=== PATIENT | male | born 1955 | race Caucasian/White ===

== ENCOUNTER 2019-09-17 10:52 | Inpatient (IN) | payer BC, OTHER ==
[~2019-09-17] VITALS: Ht 175.3 cm; Wt 80.7 kg
--- NOTE | 2019-09-17 10:53 | NUR ---
ED Nurse Note: Pt was BIBA from home d/t multiple drug OD. Pt is AOx3, noted to be tachycardiac with HR of 121bpm and appears to be hypotensive with 88/64 BP. Pt is calm and cooperative, skin is warm to touch, able to follow commands and verbalize his needs. Per triage, pt is HIV+. Pt arrived with established and patent IV site on LT AC with 20G by woolen mill utility worker. Placed on bed and gown; hooked to compliance monitor. Assured safety; will continue to monitor.
[2019-09-17 10:56] VITALS: BP 97/68
--- NOTE | 2019-09-17 10:59 | Emergency Room Report ---
History of Present Illness General Chief Complaint: Overdose Source: Patient, EMS Present Illness HPI Patient is a 63-year-old gentleman past medical history of HIV and hypertension who presents to the ER for weakness. Patient states that for the past 3 days he has been doing methamphetamines and GHB and has been unable to sleep. He states that he called EMS because he felt weak and unsteady. He denies any head trauma or headache. He denies any chest pain. Patient states that he feels a little bit short of breath. He denies any cough. He denies any abdominal pain, nausea or vomiting. He denies any rashes. He denies any recent travel or known sick contacts. COVID-19 risk:Travel to affect: No Has patient experienced tracey: No Allergies: Coded Allergies: SULFAMETHOXAZOLE (Unverified Allergy, Unknown, 09/17/19) TRIMETHOPRIM (Unverified Allergy, Unknown, 09/17/19) Patient History Past Medical History: HIV Social History: Reports: drug use Reviewed Nursing Documentation: PSxH: Agreed Review of Systems All Other Systems: negative except mentioned in HPI Physical Exam Vital Signs Date Time Temp Pulse Resp B/P (MAP) Pulse Ox O2 Delivery O2 Flow Rate FiO2 09/17/19 10:43 98.2 126 20 105/62 (76) 98 Room Air Sp02 EP Interpretation: reviewed, normal General Appearance: no apparent distress, alert, GCS 15, non-toxic Head: normocephalic, atraumatic Eyes: bilateral eye normal inspection, bilateral eye PERRL ENT: hearing grossly normal, no angioedema, normal voice, other - dry oral mucosa Neck: full range of motion, supple/symm/no masses Respiratory: chest non-tender, lungs clear, normal breath sounds, speaking full sentences Cardiovascular #1: tachycardia Gastrointestinal: normal bowel sounds, non tender, soft, non-distended, no guarding, no rebound Rectal: deferred Musculoskeletal: back normal, normal range of motion, calf tenderness, gait/ station normal, non-tender Neurologic: alert, motor strength/tone normal, oriented x3, sensory intact, responsive, speech normal Psychiatric: anxious Skin: no rash Lymphatic: no adenopathy Procedures Critical Care Time Critical Care Time Total critical care time: Approximately 35 minutes. Due to a high probability of clinically significant, life threatening deterioration, the patient required my highest level of preparedness to intervene emergently and I personally spent this critical care time directly and personally managing the patient. This critical care time included obtaining a history; examining the patient; pulse oximetry; ordering and review of studies; arranging urgent treatment with development of a management plan; evaluation of patient's response to treatment ; frequent reassessment; and, discussions with other providers.This critical care time was performed to assess and manage the high probability of imminent, life-threatening deterioration that could result in multi-organ failure. It was exclusive of separately billable procedures and treating other patients and teaching time. Please see MDM section and the rest of the note for further information on patient assessment and treatment. Medical Decision Making Diagnostic Impression: Primary Impression: Drug abuse Additional Impressions: Acute renal failure Dehydration Tachycardia Hypotension Rhabdomyolysis ER Course Patient initially hypotensive upon arrival. Patient given IV fluids. Blood pressure has been improving and heart rate has been decreasing. Patient's labs demonstrate acute renal insufficiency, dehydration and rhabdomyolysis. Patient given an amp of sodium bicarb and started on sodium bicarb drip. Patient complained of shortness of breath with tachycardia and hypotension. D-dimer elevated. CTA cannot be ordered to rule out PE due to patient's renal insufficiency. VQ scan has been ordered and is pending to rule out pulmonary embolism. Admitting doctor aware and will follow-up on those findings. EKG Diagnostic Results EKG Time: 10:55 EP Interpretation: MD Zaida Rate: tachycardiac ST Segments: no acute changes Other Impression sinus tachycardia ASA given to the pt in ED: No Rhythm Strip Diag. Results Rhythm Strip Time: 10:58 EP Interpretation: yes - MD Matt Rate: 117 Rhythm: no PVC's, no ectopy, other - sinus tachycardia Last Vital Signs Date Time Temp Pulse Resp B/P (MAP) Pulse Ox O2 Delivery O2 Flow Rate FiO2 09/17/19 10:43 98.2 126 20 105/62 (76) 98 Room Air Disposition: ADMITTED INPATIENT Condition: Critical Physician Consult: Dr. Scott in critical improved condition to Telemetry Isatu Cerda M.D. Sep 17, 2019 10:59
--- NOTE | 2019-09-17 11:05 | NUR ---
ED Nurse Note: xray @ bedside
[2019-09-17 11:21] LABS: BASOPHILS % (AUTO) 0.7 % (0.0-2.0); HEMOGLOBIN 12.4 G/DL (14.2-18.0); LYMPHOCYTES % (AUTO) 15.4 % (20.0-45.0); MEAN CORPUSCULAR VOLUME 91 FL (80-99); MONOCYTES % (AUTO) 11.3 % (1.0-10.0); NEUTROPHILS % (AUTO) 72.6 % (45.0-75.0); PLATELET COUNT 340 K/UL (150-450); RED BLOOD COUNT 3.96 M/UL (4.70-6.10); RED CELL DISTRIBUTION WIDTH 13.7 % (11.6-14.8); WHITE BLOOD COUNT 10.7 K/UL (4.8-10.8)
[2019-09-17 11:41] LABS: ANION GAP 18 mmol/L (5-15); BLOOD UREA NITROGEN 51 mg/dL (7-18); CALCIUM 9.2 MG/DL (8.5-10.1); CARBON DIOXIDE 18 MMOL/L (21-32); CHLORIDE 103 MMOL/L (98-107); CREATININE 3.5 MG/DL (0.55-1.30); POTASSIUM 5.3 MMOL/L (3.5-5.1); SODIUM 139 MMOL/L (136-145)
[2019-09-17 11:45] LABS: ALANINE AMINOTRANSFERASE 50 U/L (12-78); ALBUMIN 4.3 G/DL (3.4-5.0); ALKALINE PHOSPHATASE 112 U/L (46-116); ASPARTATE AMINO TRANSFERASE 72 U/L (15-37); CREATINE KINASE 939 U/L (26-308)
[2019-09-17] MEDS ORDERED: D5W w/Sodium Bicarb 3 amps 1000 ml IV SCH ×2 (12:00)
[2019-09-17] MEDS ORDERED: SODIUM BICARBONATE IV ONE ×2 (12:00)
[2019-09-17] MEDS ORDERED: Sodium Bicarbonate 50ml Carp IV ONE ×2 (12:00)
[2019-09-17] MEDS ORDERED: SODIUM CHLORIDE IV ONE ×2 (12:00)
--- NOTE | 2019-09-17 12:15 | NUR ---
ED Nurse Note: Patient tolerating medications well. No s/s of acute distress. BP currently 119/72
[2019-09-17] MEDS ORDERED: Omnipaque 350 100ml vial INJ PRN (12:30)
--- NOTE | 2019-09-17 12:34 | Diagnostic Imaging Report ---
Indication: Abnormal chest sounds Technique: One view of the chest Comparison: none Findings: Lungs and pleural spaces are clear. Heart size is normal. Impression: No acute process
[2019-09-17 12:40] VITALS: BP 119/72
--- NOTE | 2019-09-17 14:00 | NUR ---
Attempted to bring pt to Nuclear Medicine department for Stat V/Q Scan. Pt is currently refusing due to lack of health insurance and inability to pay [place]. ROBIN pearson.
--- NOTE | 2019-09-17 14:00 | NUR ---
ED Nurse Note: Patient refusing further services d/t not having insurance. Patient was unaware that his [employer] insurance is inacative. Addendum: 09/17/19 at [address] Zaida pearson.
[2019-09-17 14:15] VITALS: BP 117/76
--- NOTE | 2019-09-17 14:55 | NUR ---
ED Nurse Note: Patient agreed to have testing now, patient taken to have VQ scan done
--- NOTE | 2019-09-17 15:30 | NUR ---
ED Nurse Note: Patient returned from VQ scan
--- NOTE | 2019-09-17 15:50 | NUR ---
ED Nurse Note: Report given to Tano KELLY
--- NOTE | 2019-09-17 15:57 | Diagnostic Imaging Report ---
Indications: Shortness of breath Technique: IV administration 5 mCi 99m technetium macroaggregated albumin. Images obtained over the lungs in multiple projections. Previous, patient inhaled 40 mCi aerosolized 99M technetium DTPA. Images obtained over the lungs in multiple projections Comparison: Reference made to chest radiograph of earlier the same day Findings: There is slight heterogeneity to tracer distribution, but no segmental or subsegmental perfusion defects and no evidence of aerosol/perfusion mismatch. Impression: Findings deemed low probability for pulmonary embolus
[2019-09-17 17:00] VITALS: BP 132/78
--- NOTE | 2019-09-17 17:00 | NUR ---
NURSE NOTES: Patient was admitted from ED via gurney. Ambulatory. RA. AAO x 4. No c/o of pain/distress at this moment. IV on LAC 20g noted, with SL. alarm security or surveillance monitor on. Orientation on new unit given. Belongings were accounted. Side rails x 2. Bed in the lowest and locked. Call light within reach. Will continue to monitor
[2019-09-17] MEDS ORDERED: HYDROcodone/Acetamin 5/325 tab ORAL PRN (17:30)
[2019-09-17] MEDS ORDERED: Lactulose 20gm/30ml UDC ORAL PRN (17:30)
[2019-09-17] MEDS ORDERED: MULTIVITAMINS1 EAC2 ORAL (17:44)
[2019-09-17] MEDS ORDERED: FOLIC ACID0.8 M1 PO (17:44)
[2019-09-17] MEDS ORDERED: VALACYCLOVIR500 MG ORAL (17:44)
[2019-09-17] MEDS ORDERED: ASPIRIN-LOW81 MG ORAL (17:44)
[2019-09-17] MEDS ORDERED: DIAZEPAM5 MG ORAL (17:44)
[2019-09-17] MEDS ORDERED: FISH OIL CAP1000 MG ORAL (17:44)
[2019-09-17] MEDS ORDERED: MELATONIN5 M5 ORAL (17:44)
[2019-09-17] MEDS ORDERED: TYLENOL EXTRA500 MG ORAL (17:44)
[2019-09-17] MEDS ORDERED: DEPO-TESTOSTER100 MG IM (17:44)
[2019-09-17] MEDS ORDERED: ZALEPLON10 MG ORAL (17:44)
[2019-09-17] MEDS ORDERED: COQ-10100 M1 PO (17:44)
[2019-09-17] MEDS ORDERED: GABAPENTIN600 MG ORAL (17:44)
[2019-09-17] MEDS ORDERED: ATORVASTATIN CA20 MG ORAL (17:44)
[2019-09-17] MEDS ORDERED: LISINOPRIL20 MG ORAL (17:44)
[2019-09-17] MEDS ORDERED: TRIUMEQ 600-501 EACH PO (17:44)
[2019-09-17] MEDS ORDERED: VITAMIN C500 M1 ORAL (17:44)
[2019-09-17] MEDS ORDERED: ALLOPURINOL100 M1 ORAL (17:44)
[2019-09-17] MEDS ORDERED: Sodium Bicarbonate 50 ML in D5 1/2NS 1,000 ML IV SCH ×2 (18:30→19:00)
[2019-09-17] MEDS ORDERED: Acetaminophen 500mg (ES) tab ORAL PRN (18:30)
--- NOTE | 2019-09-17 19:11 | NUR ---
HAND-OFF: Report given to ROBIN Justice.
--- NOTE | 2019-09-17 19:15 | NUR ---
NURSE NOTES: Received report from ROBIN Freedman. Patient is awake, lying in semi barber's; resting comfortably. A/Ox4. Denies pain at this time. No signs of acute distress noted. Checked IV site and flushed. No erythema, bleeding or infiltration noted. Bed at lowest position, brakes on, siderails x2. Call light within reach. Will continue to monitor.
--- NOTE | 2019-09-17 19:20 | NUR ---
NURSE NOTES: US Renal done c/o tech.
[2019-09-17 20:00] VITALS: BP 114/76
[2019-09-17] MEDS: Heparin 5000 units/ml inj SUBQ SCH (20:27)
[2019-09-17] MEDS: Sodium Bicarbonate 50 ML in D5 1/2NS 1,000 ML IV SCH (20:30)
[2019-09-17] MEDS ORDERED: Zolpidem 5mg tab ORAL PRN (21:00)
[2019-09-18] VITALS: BP 134/62
--- NOTE | 2019-09-18 02:30 | History and Physical Report ---
DATE OF ADMISSION: 09/17/2019 REASON FOR ADMISSION: Electrolyte abnormalities following drug overdose. HISTORY OF PRESENT ILLNESS: This is a 63-year-old white male with history of HIV and hypertension. He presented to the emergency room with weakness and some shortness of breath. He has been "partying" for the past few days and doing methamphetamines and GHB. He has been unable to sleep. He has been eating poorly and has not been drinking much fluids. He denies any falls, head trauma, or loss of consciousness that he is aware of. He noted some shortness of breath and came to the emergency room. He has not had any recent ill contacts or travel. ALLERGIES: Sulfa and trimethoprim. PAST MEDICAL HISTORY: HIV, hypertension, and hyperlipidemia. SOCIAL HISTORY: Notable for drug use. Denies smoking or alcohol abuse. MEDICATIONS: Prior to admission, reviewed and reconciled. REVIEW OF SYSTEMS: No fevers or chills. No cough. No history of abnormal blood clotting. No history of myocardial infarction. He does have hypertension. He is on HIV therapy and undetectable viral load. He denies diabetes or thyroid impairment. He is on anti-lipid drugs. There is no history of seizure or stroke. He does have insomnia. He denies change in bowel habits history of prostate cancer. PHYSICAL EXAMINATION: VITAL SIGNS: Blood pressure 105/62, heart rate 126, respiratory rate 20, and afebrile. HEENT: Dry mucous membranes. NECK: Supple. Jugular venous pressure normal. LUNGS: Clear. CARDIAC: Regular rhythm. Rapid rate. Normal S1 and S2 with no murmur. ABDOMEN: Soft and nontender. EXTREMITIES: Good pulses. No edema. NEUROLOGIC: Nonfocal. LABORATORY AND DIAGNOSTIC DATA: EKG with sinus tachycardia and no acute abnormalities. White count 10.7, hemoglobin 12.4, and platelet count 340,000. Lactic acid 0.8. Troponin 0. CK 939. BUN 51, creatinine 3.5, sodium 139, potassium 5.3, and bicarb 18. D-dimer is slightly elevated at 1.1. VQ scan was low probability for pulmonary embolus. Chest x-ray revealed no acute process. IMPRESSION: 1. Substance abuse. 2. Methamphetamine intoxication. 3. Rhabdomyolysis. 4. Acute renal failure. 5. Dehydration. 6. Hypovolemia. 7. HIV positive. 8. History of hypertension. PLAN: 1. Cardiac monitoring. 2. Withdrawal precautions. 3. IV fluid hydration with hypotonic IV. 4. Hold angiotensin-converting enzyme inhibitor. 5. DVT prophylaxis. 6. Monitor volume status and cardiorenal function. 7. Hold statin therapy for now as well. 8. Await urinalysis. Des Iniguez M.D. DR: ZONIA JOB#: [id number] CC:
[2019-09-18 04:00] VITALS: BP 118/61
--- NOTE | 2019-09-18 04:24 | NUR ---
NURSE NOTES: Resting throughout the night. No significant change of condition noted. Will continue to monitor.
[2019-09-18] MEDS: Sodium Bicarbonate 50 ML in D5 1/2NS 1,000 ML IV SCH ×2 (05:00→17:53)
[2019-09-18 05:46] LABS: APPEARANCE,URINE CLEAR; BILIRUBIN, URINE NEGATIVE (NEGATIVE); COLOR,URINE PALE YELLOW; GLUCOSE, URINE (UA) NEGATIVE (NEGATIVE); KETONES,URINE NEGATIVE (NEGATIVE); LEUKOCYTE ESTERASE ,URINE NEGATIVE (NEGATIVE); NITRITE,URINE NEGATIVE (NEGATIVE); PH,URINE 6 (4.5-8.0); PROTEIN,URINE NEGATIVE (NEGATIVE); UROBILINOGEN,URINE NORMAL MG/DL (0.0-1.0)
--- NOTE | 2019-09-18 07:00 | NUR ---
HAND-OFF: Report given to ROBIN Eddy. Plan of care endorsed.
--- NOTE | 2019-09-18 07:45 | NUR ---
NURSE NOTES: Received report from Amisha Pandya Patient is in stable condition, no signs and symptoms of respiratory distress, denies any pain nor discomfort at this time. Patient is resting comfortably on bed. Bed is in low and locked position. Call light and bedside table placed within reach. Patient has left AC G-20 D5 1/2 NS+Bicarb 100cc/hr. Patient is ambulatory, steady gait. Advised to call for assistance.
[2019-09-18 08:00] VITALS: BP 130/61
[2019-09-18] MEDS: Heparin 5000 units/ml inj SUBQ SCH ×2 (09:00→20:24)
[2019-09-18] MEDS ORDERED: valACYclovir HCL 500mg tab ORAL SCH ×2 (09:00)
--- NOTE | 2019-09-18 09:08 | Diagnostic Imaging Report ---
Indication: Acute renal failure Technique: Grayscale and duplex images of the kidneys, retroperitoneum, and bladder were obtained. Comparison: none Findings: Right kidney measures 10.7 cm in length. Left kidney measures 10 cm in length. Both kidneys demonstrate normal echogenicity. No hydronephrosis. Left kidney demonstrates a 1 cm cyst. There is also questionably echogenic foci within the left renal sinus, could represent one or more nonobstructive calculi. Normal inferior vena cava. Bladder is normal. Impression: Negative for hydronephrosis Echogenic foci within the left renal sinus, could represent one or more nonobstructive calculi.
[2019-09-18] MEDS: Aspirin EC 81mg tab ORAL SCH (09:21)
[2019-09-18] MEDS: Allopurinol 100mg Tab ORAL SCH (09:21)
[2019-09-18] MEDS: Ascorbic Acid 500mg tab ORAL SCH (09:21)
[2019-09-18 12:00] VITALS: BP 121/77
--- NOTE | 2019-09-18 14:06 | NUR ---
CASE MANAGEMENT:REVIEW 63 YR OLD MALE BIBA CC: OVERDOSE (METHAMPHETAMINES AND GHB) PMH: HIV SI: ACUTE RENAL FAILURE. RHABDOMYOLYSIS HYPOTENSION. DEHYDRATION 98.2 126 20 88/64 98% ON RA BUN+51 CR+3.5 TCK+939 IS:1L NS BOLUS X3 IV NAHCO3 X2 CTA CHEST CXR VQ SCAN : TO TELEMETRY
[2019-09-18 16:00] VITALS: BP 143/77
--- NOTE | 2019-09-18 16:26 | NUR ---
REFRIGERATOR CAR ICER CONSULT SW received a consult for substance abuse. SW met w/ pt and discussed substance abuse issue. Pt presents as A&o4x. Pt resides w/ his friends at [address] [address], [place] [address]. Pt reports he is ambulatory w/o DMEs and independent w/ ADLs. 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 Emergency contact provided: Chidi Bella (friend) [phone]. Pt is and has no children. Pt reports he does not have any contact w/ other family members. Pt uses reading glasses. Pt admits he occasionally abusing methamphetamine and GHB. Pt states he does not think he will abuse substance again. Pt does not consider IP/OP substance abuse program at this time. SW provided the list of substance abuse rehab program as a reference. Pt accepted such list. PT denies SI/HI. Pt did not address any concerns/needs. SW to F/U as needed. Signed: 09/18/19 at 1635 by ELMER MCGARRY <Co-Signature Required>
--- NOTE | 2019-09-18 18:00 | NUR ---
NURSE NOTES: Patient is asking if his HIV medication could be resume, notify Dr. Scott but no orders was made, but patient is unable to bring the medication here because he has no available relatives who can bring his medication.
--- NOTE | 2019-09-18 19:32 | NUR ---
HAND-OFF: Report given to ROBIN Osei. Patient is in stable condition, plan of care endorsed.
--- NOTE | 2019-09-18 19:33 | NUR ---
NURSE NOTES: Received patient from ROBIN Jose and ROBIN Fry. Patient awake, alert and talkative. Bed in lowest position. Call light placed within reach.
[2019-09-18 20:00] VITALS: BP 129/75
--- NOTE | 2019-09-18 21:55 | NUR ---
Called and left a message with Dr. Scott regarding patient's anti-viral medications. MD called back with orders to continue.
[2019-09-19] VITALS: BP 129/70
[2019-09-19] MEDS: Sodium Bicarbonate 50 ML in D5 1/2NS 1,000 ML IV SCH ×2 (03:00→12:30)
[2019-09-19 04:00] VITALS: BP 134/73
[2019-09-19 07:17] LABS: BASOPHILS % (AUTO) 1.4 % (0.0-2.0); EOSINOPHILS % (AUTO) 1.5 % (0.0-3.0); HEMATOCRIT 33.3 % (42.0-52.0); HEMOGLOBIN 11.7 G/DL (14.2-18.0); MEAN CORPUSCULAR VOLUME 90 FL (80-99); MONOCYTES % (AUTO) 11.9 % (1.0-10.0); NEUTROPHILS % (AUTO) 42.2 % (45.0-75.0); PLATELET COUNT 258 K/UL (150-450); RED CELL DISTRIBUTION WIDTH 13.8 % (11.6-14.8); WHITE BLOOD COUNT 4.4 K/UL (4.8-10.8)
[2019-09-19 07:18] LABS: ANION GAP 8 mmol/L (5-15); BLOOD UREA NITROGEN 16 mg/dL (7-18); CALCIUM 9.2 MG/DL (8.5-10.1); CARBON DIOXIDE 29 MMOL/L (21-32); CHLORIDE 107 MMOL/L (98-107); POTASSIUM 4.1 MMOL/L (3.5-5.1); SODIUM 144 MMOL/L (136-145)
--- NOTE | 2019-09-19 07:25 | NUR ---
HAND-OFF: Report given to ROBIN Valero. Patient stable.
--- NOTE | 2019-09-19 07:26 | NUR ---
NURSE NOTES: Received patient from ROBIN Osei and ROBIN Fry. Patient awake, alert and oriented x4. Bed in lowest position. Brakes engaged for safety. Call light is within reach. Will continue with the plan of care.
[2019-09-19 08:00] VITALS: BP 128/72
--- NOTE | 2019-09-19 08:31 | NUR ---
NURSE NOTES: Spoke to Dr. Scott about the patient's HIV medication - Triumac. Dr. Scott stated that Dr. Iniguez will take care of it.
[2019-09-19] MEDS: Heparin 5000 units/ml inj SUBQ SCH (09:08)
[2019-09-19] MEDS: Aspirin EC 81mg tab ORAL SCH (09:08)
[2019-09-19] MEDS: Ascorbic Acid 500mg tab ORAL SCH (09:09)
[2019-09-19] MEDS: Allopurinol 100mg Tab ORAL SCH (09:09)
[2019-09-19] MEDS ORDERED: valACYclovir HCL 500mg tab ORAL SCH (10:00)
[2019-09-19 12:00] VITALS: BP 122/76
--- NOTE | 2019-09-19 12:19 | NUR ---
CASE MANAGEMENT:REVIEW 09/19/19 SI: METHAMPHETAMINE INTOXICATION ACUTE RENAL FAILURE. DEHYDRATION. HIV POSITIVE 97.7 103 18 128/72 97% ON RA IS: IVF NAHCO3@100/HR VALTREX PO QD PROTONIX PO QD ALLOPURINOL PO QD ASA PO QD NEURONTIN PO TID MVI PO QD FOLATE PO QD HEPARIN SQ Q12 VALIUM PO Q6HRS PRN : TELEMETRY STATUS DCP: FROM HOME
--- NOTE | 2019-09-19 13:15 | NUR ---
RD ASSESSMENT & RECOMMENDATIONS SEE CARE ACTIVITY FOR COMPLETE ASSESSMENT DAILY ESTIMATED NEEDS: Needs based on ARF 79.5kg adj 25-30 kcals/kg 4944-9732 total kcals 1-1.5 g protein/kg 80-119 g total protein Fluid per MD NUTRITION DIAGNOSIS: Decreased sodium needs r/t acute renal failure as evidenced by pt adm w/ elev BUN, elev Creat (3.5) and elev K (5.3), now all wnl. CURRENT DIET: Cardiac diet PO DIET RECOMMENDATIONS: LOW NA DIET ADDITIONAL RECOMMENDATIONS: 1) Obtain a standing weight 2) Monitor renal labs / need for renal diet restrictions
--- NOTE | 2019-09-19 13:54 | NUR ---
INSURANCE UPDATE JUST RECEIVED CALL FROM [facility] IN ADMITTING STATING THIS PATIENT HAS CHOW INSURANCE. WILL FAX ALL CLINICALS TO [facility], NOW Addendum: 09/19/19 at 1405 by ARJUN SWIFT LVN LVN FAXED ALL CLINICALS TO [facility] T: [phone] F: [phone] Addendum: 09/19/19 at 1613 by ARJUN SWIFT LVN LVN CALLED [facility] T: [phone] AND SPOKE WITH STONEY LUA THEY HAVE RECEIVED OUR CLINICALS AND TRANSFER ORDER. THE ASSIGNED [employer] COMMANDER DEPUTY SHERIFF, EUSEBIO IS CURRENTLY REVIEWING THE CASE PROVIDED STONEY WITH THE PHONE NUMBER TO [facility]LE[facility]'S NURSES STATION DISCHARGE ORDER TO [facility] WHEN BED AVAILABLE RECEIVED FROM DR MURPHY ~ ORDER ENTERED UNDER "OTHER NURSING ORDERS" DISCUSSED ABOVE WITH CHARGE NURSE, NAVEED
[2019-09-19 16:00] VITALS: BP 132/68
--- NOTE | 2019-09-19 17:16 | NUR ---
NURSE NOTES: Patient is requesting to see Dr. Iniguez or Dr Corrigan for clarifications of certain health concerns. Notified both MD's. Awaiting response.
--- NOTE | 2019-09-19 17:19 | NUR ---
NURSE NOTES: Patient complaint that Gabapentin makes him feell dizzy and light-headed. Will notify MD. Will continue to monitor patient.
--- NOTE | 2019-09-19 18:59 | NUR ---
NURSE NOTES: Patient is discharged home per MD order via ubber. IV removed and patient tolerated well. lead burner apprentice removed. All discharge protocols followed and discussed discharge instructions with patient, patient stated understanding. Patient's belonging list acknowledged and signed by nurse and patient medication was picked up from the pharmacy and given to patient. Patient was in stable condition.
--- NOTE | 2019-09-20 02:15 | Progress Note ---
DATE: 09/18/2019 INTERNAL MEDICINE PROGRESS NOTE SUBJECTIVE: The patient feels better. No nausea or vomiting. No chest pain. Appetite has improved. The patient is unsure why he is in the hospital. He was made aware of his presenting renal failure in association with rhabdomyolysis related to his drug abuse. OBJECTIVE: VITAL SIGNS: Blood pressure 143/77, heart rate 117, respiratory rate 20, and afebrile. HEENT: Oropharynx is clear. NECK: Supple. Jugular venous pressure normal. LUNGS: Clear. CARDIAC: Regular rhythm and rate. Normal S1 and S2 with a fourth heart sound. ABDOMEN: Soft. EXTREMITIES: No edema. IMPRESSION: 1. Methamphetamine intoxication and abuse. 2. Rhabdomyolysis. 3. Acute renal failure. 4. Hypovolemia. 5. Dehydration. 6. HIV positive. 7. Hypertension. 8. Secondary sinus tachycardia. PLAN: 1. Continue IV fluids. 2. Withdrawal precautions. 3. Restart antiviral therapy. 4. Titrate antihypertensives. 5. Recheck lab studies. 6. Discharge plan once renal parameters normalize. Des Iniguez M.D. DR: ZONIA JOB#: [id number] CC:
[2019-09-20] MEDS ORDERED: valACYclovir HCL 500mg tab ORAL SCH (09:00)
--- NOTE | 2019-09-20 12:49 | Discharge Summary ---
Discharge Summary Discharge Summary _ ATE OF ADMISSION: 09/17/2019 DATE OF DISCHARGE: 09/19/2019 DISCHARGED BY: Dr. Iniguez REASON FOR ADMISSION: 63 years old male with past medical history significant for hypertension and HIV , presented to emergency department with shortness of breath and generalized weakness. Patient apparently was doing drugs for few days with methamphetamine and GHB. Patient was unable to sleep . Patient had been eating poorly and was not drinking much fluida. He denied falls ,head trauma, loss of consciousness. Upon evaluation in emergency room patient was tachycardic with heart rate 126 , otherwise vital signs were stable. Patient was afebrile. Laboratory work-up revealed no leukocytosis , hemoglobin 12.4, hematocrit 36, platelet count 340. BUN 51, creatinine 3.5. Potassium 5.3. CK 939. AST 72, ALT 50. Troponin negative. EKG revealed sinus tachycardia, no acute ischemic changes. Lactic acid 0.8. Urinalysis revealed no evidence of UTI. Chest x-ray revealed no acute cardiopulmonary pathology. VQ scan revealed low probability for pulmonary emboli. Renal ultrasound revealed no evidence of hydronephrosis. Patient subsequently admitted for acute renal failure, dehydration , tachycardia, rhabdomyolysis and drug intoxication. HOSPITAL COURSE: Patient admitted to telemetry floor. Withdrawal precautions were maintained. Patient started on the IV fluids with hypotonic IV solution. ISMAEL inhibitor was on hold. Renal parameters and electrolytes were closely monitored , electrolytes further corrected as needed. Volume status and cardiorenal function were closely monitored. Statin was on hold. DVT and GI prophylaxis provided. Antiretroviral therapy was restarted. Antihypertensive titrated as needed. Potassium was corrected ; 4.1 prior to discharge. BUN from 51 down to 16 , creatinine from 3.5 down to 1. Acute renal failure was likely due to dehydration as well as the drug intoxication and resolved. Patient clinically stabilized and was ready for discharge home. Reinforced importance of compliance with medication regimen. Patient was counseled on abstinence from illicit street drugs. FINAL DIAGNOSES: Substance abuse Methamphetamine intoxication Rhabdomyolysis Acute renal failure -resolved Dehydration Hypovolemia HIV positive History of hypertension DISCHARGE MEDICATIONS: See Medication Reconciliation list. DISCHARGE INSTRUCTIONS: Patient was discharged home. Follow-up with the primary care provider in 1 week. I have been assigned to dictate discharge summary for this account. I was not involved in the patient's management. Claribel Gilman NP Sep 20, 2019 12:49
== END 2019-09-19 18:52 | disposition home or self-care (01) | DRG 683 ==
LOC: EDBD 10:52 → EMR 11:03 → EDBEDREQ 12:06 → 2E 16:44
DX: N17.9 Acute kidney failure, unspecified (principal); M62.82 Rhabdomyolysis; B20 Human immunodeficiency virus [HIV] disease; E86.0 Dehydration; E86.1 Hypovolemia; I10 Essential (primary) hypertension; R00.0 Tachycardia, unspecified; F15.129 Other stimulant abuse with intoxication, unspecified; Z88.1 Allergy status to other antibiotic agents; Z88.2 Allergy status to sulfonamides; G47.00 Insomnia, unspecified
CPT/HCPCS: 36415; 71045; 76770; 78579; 78580; 80048; 80053; 81003; 82550; 83605; 83735; 84484; 85025; 85379; 93005; 96361; 96365; 96366; 96375; 99291; A9503; J7030